=== PATIENT | female | born 2005 | race Caucasian/White ===

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

== ENCOUNTER 2025-06-04 00:06 | Emergency (ER) | payer OTHER, SELFPAY ==
--- NOTE | ~2025-06-04 | XR_ITS ---
EXAMINATION: XR hand LT min 3V, 06/04/2025 1:05 CDT HISTORY: left hand pain COMPARISON: No comparisons available. Findings: No acute fracture or malalignment. No significant degenerative changes. Soft tissues unremarkable. Impression: No acute fracture or malalignment. Reviewed, dictated and finalized at location P. Impression: No acute fracture or malalignment.
[2025-06-04 00:14] VITALS: BP 149/102; PULSE 106; RESP 19; TEMP 36.3; O2SAT 100
[2025-06-04] MEDS: ACETAMINOPHEN 500 MG TABLET 1000 MG PO (01:00)
--- NOTE | 2025-06-04 01:01 | ED.UPPEXIN ---
HPI - Extremity Injury (Upper) General Chief Complaint: Extremity Injury, Upper Stated Complaint: left hand pain Time Seen by Provider: 06/04/25 00:53 Source: patient Mode of arrival: ambulatory Limitations: no limitations History of Present Illness HPI narrative: This is a 20-year-old female that presents emergency department for left hand pain. Ongoing over the last week. No specific injury known. Denies fevers, erythema, edema. Related Data Home Medications ?Medication ?Instructions ?Recorded ?Confirmed ?Last Taken ?Type dextroamphetamine-amphetamine 30 30 mg PO BID 06/16/20 Unknown History mg tablet (Adderall) melatonin 3 mg tablet 3 mg PO HS PRN Sleep 06/16/20 Unknown History Allergies Allergy/AdvReac Type Severity Reaction Status Date / Time No Known Allergies Allergy Mild Verified 06/04/25 00:08 Review of Systems Review of Systems: All systems reviewed & are unremarkable except as noted in HPI and below PMFSH Past Medical History Medical History (Updated 06/04/25 @ 02:34 by Maia Gallegos PA-C) No active medical problems Exam Narrative: GENERAL: Well-appearing, well-nourished, and in no acute distress. HEAD: Normocephalic, atraumatic. EYES: EOMI. EXTREMITIES: Normal range of motion. No edema, erythema. Normal radial pulse. Normal sensation SKIN: Warm, dry, no rash. NEURO: No focal deficits. Alert and oriented x3. PSYCH: Normal mood and affect Course Vital Signs Vital signs: Vital Signs Temperature 97.3 F L 06/04/25 00:14 Pulse Rate 106 H 06/04/25 00:14 Respiratory Rate 19 06/04/25 00:14 Blood Pressure 149/102 H 06/04/25 00:14 Pulse Oximetry 100 06/04/25 00:14 Oxygen Delivery Room Air 06/04/25 00:14 Temperature 97.3 F L 06/04/25 00:14 Pulse Rate 106 H 06/04/25 00:14 Respiratory Rate 19 06/04/25 00:14 Blood Pressure 149/102 H 06/04/25 00:14 Pulse Oximetry 100 06/04/25 00:14 Oxygen Delivery Room Air 06/04/25 00:14 MDM - Extremity Injury (Upper) MDM Narrative Medical decision making narrative: Patient presents to the ER for left hand pain. Ongoing over the last week. Patient is neurovascularly intact. Left hand x-ray without acute osseous abnormalities. She is to follow up with primary doctor. She was given warnings to return to the ER Differential Diagnosis Differential diagnosis: Likely other (hand sprain) Imaging Data Radiologist's impression: Left hand x-ray: No acute osseous finding Critical Care Time Critical Care Time Critical Care Time: No Discharge Plan Discharge Clinical Impression: Hand pain, left Patient Disposition: Home Condition: Stable Instructions: Arthralgia (ED) Additional Instructions: Return to the ER if you experience fever, redness and swelling of your extremity, numbness or any other symptoms that are concerning to you Ice and elevate extremity. Tylenol or Ibuprofen as needed for pain Follow up with your doctor for further care. Patient Language: Maori Prescriptions: No Action melatonin 3 mg Tablet 3 mg PO HS PRN (Reason: Sleep) dextroamphetamine-amphetamine [Adderall] 30 mg Tablet 30 mg PO BID metaxalone [Skelaxin] 800 mg tablet 800 mg PO TID PRN (Reason: muscle pain) Qty: 20 0RF Follow-up/Referrals: Nay,Genoveva Szymanski MD [Primary Care Provider] Forest Nice MD [Physician, Orthopedics]
== END 2025-06-04 02:46 | disposition home or self-care (01) ==
PROVIDERS: Emergency Provider Physician Assistant; PCP Pediatrics Adolescent Medicine
DX: M79.642 Pain in left hand (principal)
CPT/HCPCS: 73130; 99283; A9270